=== PATIENT | male | born 1950 | race Caucasian/White ===

== ENCOUNTER → 2020-08-21 | Outpatient (CLI) | payer MEDICARE, OTHER ==
[~2020-08-21] MED LIST: COMBIVENT RESPIM4 GM INH; GABAPENTIN800 MG PO; LOTENSIN 5 MG TA5 MG PO; MOBIC15 MG PO; NORCO 5-325 TA1 EACH PO; PRAVACHOL40 MG PO; PREDNISONE5 MG PO; PROTONIX40 MG PO; ROPINIROLE HCL0.5 MG PO; SINGULAIR10 MG PO; ULTRAM50 MG PO; VENTOLIN HFA 66.7 GM INH; VENTOLIN/PROVE0.5 ML INH; ZETIA10 MG PO; [UNRECOGNIZED DRUG - OTHER] PO
== END ==
LOC: CT 14:30
DX: C34.12 Malignant neoplasm of upper lobe, left bronchus or lung (principal)
CPT/HCPCS: 71250

== ENCOUNTER → 2020-12-11 | Outpatient (CLI) | payer OTHER ==
[~2020-12-11] MED LIST changes: +BEVESPI AEROS10.7 GM INH; +ELIQUIS5 MG PO; +HYDROCODON-ACE1 EAC6 PO; -NORCO 5-325 TA1 EACH PO; +PRIMIDONE50 MG PO; +ST. JOSEPH ASPI81 M1 PO; +SYMBICORT 16010.2 GM INH
== END ==
LOC: KOH-I 14:00
DX: C34.12 Malignant neoplasm of upper lobe, left bronchus or lung (principal); R91.1 Solitary pulmonary nodule; J90 Pleural effusion, not elsewhere classified
CPT/HCPCS: 71250

== ENCOUNTER → 2021-01-23 | Outpatient (CLI) | payer MEDICARE, OTHER ==
[2021-01-23 08:58] LABS: HEMOGLOBIN 12.4 gm/dl (14.0-17.5); RED BLOOD COUNT 3.89 M/UL (4.20-5.50); WHITE BLOOD COUNT 13.2 K/UL (4.5-11.0)
== END ==
LOC: CT 01-02 09:00
PROVIDERS: Internal Medicine
DX: C34.12 Malignant neoplasm of upper lobe, left bronchus or lung (principal); G89.3 Neoplasm related pain (acute) (chronic); Z91.041 Radiographic dye allergy status; Z79.01 Long term (current) use of anticoagulants; Z79.82 Long term (current) use of aspirin; Z79.899 Other long term (current) drug therapy
CPT/HCPCS: 71045; 85027; 85610; 85730; 99152; 99153; J2250; J3010

== ENCOUNTER → 2021-06-07 | Outpatient (CLI) | payer MEDICARE, OTHER | LOC: KOH-I 11:02 | DX: C34.12 Malignant neoplasm of upper lobe, left bronchus or lung (principal); G89.3 Neoplasm related pain (acute) (chronic); Z51.11 Encounter for antineoplastic chemotherapy; R06.02 Shortness of breath; J90 Pleural effusion, not elsewhere classified | CPT/HCPCS: 71250 ==

== ENCOUNTER → 2021-10-05 | Outpatient (CLI) | payer MEDICARE, OTHER | LOC: KOH-I 11:00 | DX: C34.12 Malignant neoplasm of upper lobe, left bronchus or lung (principal); G89.3 Neoplasm related pain (acute) (chronic); R06.02 Shortness of breath; J90 Pleural effusion, not elsewhere classified | CPT/HCPCS: 71250 ==

== ENCOUNTER → 2021-12-31 | Outpatient (CLI) | payer MEDICARE, OTHER | LOC: CT 12-25 10:30 | DX: C34.12 Malignant neoplasm of upper lobe, left bronchus or lung (principal); G89.3 Neoplasm related pain (acute) (chronic); R06.02 Shortness of breath; J90 Pleural effusion, not elsewhere classified | CPT/HCPCS: 71260; Q9967 ==

== ENCOUNTER 2022-01-10 15:55 | Inpatient (IN) | payer MEDICARE, OTHER ==
[~2022-01-10] VITALS: Ht 167.6 cm; Wt 79.8 kg
[2022-01-10] MEDS ORDERED: COMBIVENT RESPIM4 GM INH (17:47)
[2022-01-10] MEDS ORDERED: PREDNISONE10 MG PO (17:50)
[2022-01-10] MEDS ORDERED: ELIQUIS5 MG PO (17:51)
[2022-01-10] MEDS ORDERED: ASPIRIN EC81 MG PO (17:54)
[2022-01-10 19:01] LABS: HEMOGLOBIN 10.8 gm/dl (14.0-17.5); RED BLOOD COUNT 3.53 M/UL (4.20-5.50)
[2022-01-10 19:32] LABS: BUN/CREATININE RATIO 19 (0-10)
[2022-01-11 03:14] LABS: HEMOGLOBIN 9.8 gm/dl (14.0-17.5); RED BLOOD COUNT 3.18 M/UL (4.20-5.50); WHITE BLOOD COUNT 8.8 K/UL (4.5-11.0)
[2022-01-11 03:42] LABS: BUN/CREATININE RATIO 22 (0-10)
[2022-01-11 12:48] LABS: BODY FLUID SOURCE PLEURAL
[2022-01-11 13:27] LABS: LDH, BODY FLUID 191 U/L
== END 2022-01-12 19:02 | disposition home health service (06) | DRG 180 ==
LOC: MED SURG 4 16:19
PROVIDERS: Internal Medicine Pulmonary Disease; ADMIT Internal Medicine
PROC: 0W9B30Z Drainage of Left Pleural Cavity with Drainage Device, Percutaneous Approach (ICD-10-PCS; principal; 2022-01-11 11:15)
DX: C34.90 Malignant neoplasm of unspecified part of unspecified bronchus or lung (principal); J96.21 Acute and chronic respiratory failure with hypoxia; J91.0 Malignant pleural effusion; J60 Coalworker's pneumoconiosis; J44.9 Chronic obstructive pulmonary disease, unspecified; Z86.718 Personal history of other venous thrombosis and embolism; Z79.01 Long term (current) use of anticoagulants; Z79.82 Long term (current) use of aspirin; Z87.891 Personal history of nicotine dependence; Z82.49 Family history of ischemic heart disease and other diseases of the circulatory system; Z99.81 Dependence on supplemental oxygen
CPT/HCPCS: 36415; 71045; 71046; 80048; 80053; 82150; 82945; 83036; 83615; 83735; 83880; 83986; 84132; 84157; 85025; 85610; 87205; 89051; 93005; 94640; 94664; 94760; C1729; J1642; J3010; J7040